=== PATIENT | female | born 1985 | race Caucasian/White ===

== ENCOUNTER 2017-04-02 21:43 | Emergency (ER) | payer MEDICAID ==
[~2017-04-02] VITALS: Ht 157.5 cm; Wt 91.0 kg
[2017-04-03] MEDS ORDERED: ONDANSETRON 4MG ODT PO ONE (02:00)
[2017-04-03] MEDS ORDERED: KETOROLAC 30MG/ML VIAL IM ONE (02:00)
[2017-04-03 04:25] VITALS: BP 121/69
== END 2017-04-03 04:35 | disposition home or self-care (01) ==
LOC: ER 21:44
DX: M94.0 Chondrocostal junction syndrome [Tietze] (principal); M25.512 Pain in left shoulder; M25.532 Pain in left wrist; R03.0 Elevated blood-pressure reading, without diagnosis of hypertension
CPT/HCPCS: 71020; 73030; 81025; 93005; 96372; 99284; J1885; Q0162